=== PATIENT | male | born 1970 | race Caucasian/White ===

== ENCOUNTER 2016-07-02 15:34 | Observation (INO) | payer OTHER ==
[2016-07-02] MEDS ORDERED: SODIUM CHLORIDE 0.9% 500 ML IV STA (16:14)
--- NOTE | 2016-07-02 16:15 | ED ---
General Adult HPI <Spenser Rogers - Last Filed: 07/02/16 18:24> - General Source: patient, RN notes reviewed Mode of arrival: ambulatory Limitations: no limitations <Syeda Lundberg - Last Filed: 07/02/16 23:04> - General Chief complaint: Back Pain/Injury Stated complaint: Back Pain Time Seen by Provider: 07/02/16 15:47 - History of Present Illness Initial comments: This is a 45-year-old male who presents with mid back pain that radiates to the chest. Patient states this started last night but went away. Patient states he was concerned when the pain came back this morning. Patient has noticed some pain that radiates to the left arm. Patient denies that he is having any chest pain right now in the EC. Patient denies any shortness of breath, cough, congestion, or fever/chills. Patient denies any history of heavy lifting and denies that the pain he feels in his back is reproducible. Patient states the pain is not made worse by twisting or bending or lifting. Patient admits that his father and uncle have had myocardial infarctions at younger ages. Patient has no cardiac history but does admit that he takes blood pressure medication. Patient denies any recent fever, chills, shortness breath, abdominal pain, nausea/vomiting/diarrhea, back pain, numbness, tingling, hematuria, headache, or visual changes, or any other complaints. (Syeda Lundberg) - Related Data Home Medications Medication Instructions Recorded Confirmed Citalopram Hydrobromide [CeleXA] 20 mg PO QAM 07/02/16 07/02/16 Losartan/Hydrochlorothiazide 1 tab PO DAILY 07/02/16 07/02/16 [Hyzaar 100-25 Tablet] Allergies Allergy/AdvReac Type Severity Reaction Status Date / Time No Known Allergies Allergy Verified 07/02/16 16:00 Review of Systems ROS Other: All systems not noted in ROS Statement are negative. <Spenser Rogers - Last Filed: 07/02/16 18:24> ROS Other: All systems not noted in ROS Statement are negative. <Syeda Lundberg - Last Filed: 07/02/16 23:04> ROS Statement: Those systems with pertinent positive or pertinent negative responses have been documented in the HPI. Past Medical History Past Medical History: Hypertension History of Any Multi-Drug Resistant Organisms: None Reported Past Surgical History: No Surgical Hx Reported Past Psychological History: No Psychological Hx Reported Smoking Status: Never smoker Past Alcohol Use History: None Reported, Occasional Past Drug Use History: None Reported - Past Family History Mother Family Medical History: Cancer Additional Family Medical History / Comment(s): KIDNEY CANCER, BASAL CELL SKIN CANCER Father Family Medical History: Congestive Heart Failure (CHF) <Syeda Lundberg - Last Filed: 07/02/16 23:04> General Exam <Spenser Rogers - Last Filed: 07/02/16 18:24> Limitations: no limitations <Syeda Lundberg - Last Filed: 07/02/16 23:04> - General Exam Comments Initial Comments: General: The patient is awake and alert, in no distress, and does not appear acutely ill. Neck: The neck is supple, there is no tenderness or JVD. Cardiovascular: There is a regular rate and rhythm. No murmur, rub or gallop is appreciated. Respiratory: Lungs are clear to auscultation, respirations are non-labored, breath sounds are equal. No wheezes, stridor, rales, or rhonchi. Musculoskeletal: Normal ROM, no tenderness. Strength 5/5. Sensation intact. Radial pulses equal bilaterally 2+. Neurological: A&O x 3. CN II-XII intact, There are no obvious motor or sensory deficits. Coordination appears grossly intact. Speech is normal. Skin: Skin is warm and dry and no rashes or lesions are noted. Psychiatric: Cooperative, appropriate mood & affect, normal judgment. (Syeda Lundberg) Procedures <Spenser Rogers - Last Filed: 07/02/16 18:24> <Syeda Lundberg - Last Filed: 07/02/16 23:04> - Procedures Initial comment: An EKG was done at 1619 07/02/2016 showing normal sinus rhythm. Ventricular rate of 71, RI interval of 146, QRS duration of 90, QTC of 480. No acute ST changes. There are no old EKGs in the system for comparison. (Syeda Lundberg) Medical Decision Making - Lab Data Result diagrams: 07/02/16 16:33 07/02/16 16:33 <Spenser Rogers - Last Filed: 07/02/16 18:24> - Lab Data Result diagrams: 07/02/16 16:33 07/02/16 16:33 <Syeda Lundberg - Last Filed: 07/02/16 23:04> - Medical Decision Making The patient be admitted to Dr. beach for observation and serial cardiac enzymes. Dr. Rogers (Spenser Rogers) This is a 45-year-old male who presents with mid-back pain that radiates to the chest. On physical exam his pain is not reproducible. Patient has a history of a father and uncle with early cardiac histories. Lungs are clear to auscultation bilaterally. An EKG was done at 1619 07/02/2016 showing normal sinus rhythm. Ventricular rate of 71, RI interval of 146, QRS duration of 90, QTC of 480. No acute ST changes. There are no old EKGs in the system for comparison. Basic labs along with cardiac labs were drawn interviewed showing: CK-MB is elevated at 3.5 but troponin is negative. A chest x-ray is done and reviewed showing: No acute cardiopulmonary process. Report by Dr. Rubio. Patient will be started on aspirin. Sublingual nitro was held as patient is not having any pain or symptoms at this time and blood pressure is under control. At this time Dr. Lewis was consulted and spoke with Dr. Rogers. Patient will be admitted for observation and serial cardiac enzymes. I discussed this case with attending physician Dr. Rogers who agrees with plan as stated above. (Syeda Lundberg) - Lab Data Lab Results 07/02/16 07/02/16 07/02/16 Range/Units 16:33 16:33 16:33 WBC 11.4 H (3.8-10.6) k/uL RBC 5.45 (4.30-5.90) m/uL Hgb 17.0 (13.0-17.5) gm/dL Hct 49.3 (39.0-53.0) % MCV 90.4 (80.0-100.0) fL MCH 31.2 (25.0-35.0) pg MCHC 34.5 (31.0-37.0) g/dL RDW 12.6 (11.5-15.5) % Plt Count 371 (150-450) k/uL Neutrophils % 67 % Lymphocytes % 22 % Monocytes % 7 % Eosinophils % 2 % Basophils % 0 % Neutrophils # 7.7 (1.3-7.7) k/uL Lymphocytes # 2.5 (1.0-4.8) k/uL Monocytes # 0.7 (0-1.0) k/uL Eosinophils # 0.2 (0-0.7) k/uL Basophils # 0.0 (0-0.2) k/uL PT (9.0-12.0) sec INR (<1.1) APTT (22.0-30.0) sec D-Dimer (<0.60) mg/L FEU Sodium 137 (137-145) mmol/L Potassium 4.2 (3.5-5.1) mmol/L Chloride 96 L (98-107) mmol/L Carbon Dioxide 30 (22-30) mmol/L Anion Gap 11 mmol/L BUN 21 H (9-20) mg/dL Creatinine 1.42 H (0.66-1.25) mg/dL Est GFR (MDRD) Af Amer >60 (>60 ml/min/1.73 sqM) Est GFR (MDRD) Non-Af 54 (>60 ml/min/1.73 sqM) Glucose 102 H (74-99) mg/dL Calcium 10.0 (8.4-10.2) mg/dL Magnesium 2.0 (1.6-2.3) mg/dL Total Bilirubin 1.3 (0.2-1.3) mg/dL AST 51 (17-59) U/L ALT 57 (21-72) U/L Alkaline Phosphatase 76 (38-126) U/L Total Creatine Kinase 886 H (55-170) U/L CK-MB (CK-2) 3.5 H* (0.0-2.4) ng/mL CK-MB (CK-2) Rel Index 0.4 Troponin I <0.012 (0.000-0.034) ng/mL Total Protein 8.1 (6.3-8.2) g/dL Albumin 4.5 (3.5-5.0) g/dL 07/02/16 Range/Units 16:33 WBC (3.8-10.6) k/uL RBC (4.30-5.90) m/uL Hgb (13.0-17.5) gm/dL Hct (39.0-53.0) % MCV (80.0-100.0) fL MCH (25.0-35.0) pg MCHC (31.0-37.0) g/dL RDW (11.5-15.5) % Plt Count (150-450) k/uL Neutrophils % % Lymphocytes % % Monocytes % % Eosinophils % % Basophils % % Neutrophils # (1.3-7.7) k/uL Lymphocytes # (1.0-4.8) k/uL Monocytes # (0-1.0) k/uL Eosinophils # (0-0.7) k/uL Basophils # (0-0.2) k/uL PT 10.4 (9.0-12.0) sec INR 1.0 (<1.1) APTT 26.2 (22.0-30.0) sec D-Dimer 0.19 (<0.60) mg/L FEU Sodium (137-145) mmol/L Potassium (3.5-5.1) mmol/L Chloride (98-107) mmol/L Carbon Dioxide (22-30) mmol/L Anion Gap mmol/L BUN (9-20) mg/dL Creatinine (0.66-1.25) mg/dL Est GFR (MDRD) Af Amer (>60 ml/min/1.73 sqM) Est GFR (MDRD) Non-Af (>60 ml/min/1.73 sqM) Glucose (74-99) mg/dL Calcium (8.4-10.2) mg/dL Magnesium (1.6-2.3) mg/dL Total Bilirubin (0.2-1.3) mg/dL AST (17-59) U/L ALT (21-72) U/L Alkaline Phosphatase (38-126) U/L Total Creatine Kinase (55-170) U/L CK-MB (CK-2) (0.0-2.4) ng/mL CK-MB (CK-2) Rel Index Troponin I (0.000-0.034) ng/mL Total Protein (6.3-8.2) g/dL Albumin (3.5-5.0) g/dL Disposition <Spenser Rogers - Last Filed: 07/02/16 18:24> Decision Time: 18:42 <Syeda Lundberg Last Filed: 07/02/16 23:04> Clinical Impression: Unstable angina Disposition: ADMITTED IP TO THIS HOSP
[2016-07-02 16:42] LABS: Basophils % (A) 0 %; CH 31.8; CHCM 35.3; Eosinophils # (A) 0.2 k/uL (0-0.7); Eosinophils % (A) 2 %; HCT 49.3 % (39.0-53.0); HDW 2.49; Luc # (Auto) 0.27; Luc % (Auto) 2; Lymphocytes # (A) 2.5 k/uL (1.0-4.8); Lymphocytes % (A) 22 %; MCH 31.2 pg (25.0-35.0); MCHC 34.5 g/dL (31.0-37.0); MCV 90.4 fL (80.0-100.0); Mean Platelet Volume 7.1; Monocytes # (A) 0.7 k/uL (0-1.0); Monocytes % (A) 7 %; Neutrophils # (A) 7.7 k/uL (1.3-7.7); Neutrophils % (A) 67 %; RBC 5.45 m/uL (4.30-5.90); RDW 12.6 % (11.5-15.5); WBC 11.4 k/uL (3.8-10.6); WBC (Perox) 11.15
--- NOTE | 2016-07-02 16:42 | XR ---
EXAMINATION TYPE: XR chest 2V DATE OF EXAM: 07/02/2016 4:38 PM COMPARISON: NONE HISTORY: Chest pain TECHNIQUE: Frontal and lateral views of the chest are obtained. FINDINGS: There is no focal air space opacity, pleural effusion, or pneumothorax seen. The cardiac silhouette size is within normal limits. There are prominent lung volumes. The osseous structures ar e intact. IMPRESSION: No acute cardiopulmonary process.
[2016-07-02 16:55] LABS: ALT 57 U/L (21-72); AST 51 U/L (17-59); Alkaline Phosphatase 76 U/L (38-126); Anion Gap 11 mmol/L; Blood Urea Nitrogen 21 mg/dL (9-20); Carbon Dioxide 30 mmol/L (22-30); Chloride 96 mmol/L (98-107); Glucose 102 mg/dL (74-99); Non-African American GFR(MDRD) 54 (>60 ml/min/1.73 sqM); Potassium 4.2 mmol/L (3.5-5.1); Sodium 137 mmol/L (137-145); Total Bilirubin 1.3 mg/dL (0.2-1.3); Total Protein 8.1 g/dL (6.3-8.2)
[2016-07-02 17:01] LABS: Partial Thromboplastin Time 26.2 sec (22.0-30.0); Prothrombin Time 10.4 sec (9.0-12.0)
[2016-07-02 17:28] LABS: Creatine Kinase 886 U/L (55-170)
[2016-07-02 17:41] LABS: Troponin I <0.012 ng/mL (0.000-0.034)
[2016-07-02 17:43] LABS: Creatine Kinase MB 3.5 ng/mL (0.0-2.4)
[2016-07-02] MEDS ORDERED: ASPIRIN 325 MG TAB PO STA (18:00)
[2016-07-02] MEDS: NITROGLYCERIN SL TABS 0.4 MG TAB SUBLINGUAL STA ×2 (18:24→18:31)
[2016-07-02] MEDS ORDERED: MORPHINE SULFATE 4 MG/ML SYRINGE IV PRN (18:31)
[2016-07-02] MEDS ORDERED: NITROGLYCERIN SL TABS 0.4 MG TAB SUBLINGUAL PRN (18:31)
[2016-07-02] MEDS ORDERED: ACETAMINOPHEN TAB 325 MG TAB PO PRN (18:31)
[2016-07-02] MEDS ORDERED: SODIUM CHLORIDE 0.9% 1,000 ML IV SCH (18:45)
[2016-07-02 22:37] LABS: Creatine Kinase 752 U/L (55-170)
[2016-07-02 22:50] LABS: Troponin I <0.012 ng/mL (0.000-0.034)
[2016-07-02 22:53] LABS: Creatine Kinase MB 2.8 ng/mL (0.0-2.4)
[2016-07-03 04:39] LABS: Cholesterol 199 mg/dL (<200); HDL Cholesterol 46 mg/dL (40-60); Triglycerides 161 mg/dL (<150)
[2016-07-03 05:00] LABS: Creatine Kinase 649 U/L (55-170)
[2016-07-03 05:13] LABS: Troponin I <0.012 ng/mL (0.000-0.034)
[2016-07-03 05:36] LABS: Creatine Kinase MB 2.7 ng/mL (0.0-2.4)
[2016-07-03 07:39] VITALS: RESP 18
--- NOTE | 2016-07-03 08:49 | CONS ---
DATE OF CONSULTATION: Kd is a 45-year-old gentleman with history of hypertension who is admitted to hospital with chest pain. Patient states that he is under a lot of stress and with stress he often becomes anxious. He describes it as a discomfort between his shoulder blades in the back without radiation to neck, arm or back, and associated with diaphoresis and without any clear-cut relationship to exertion. The pain had gradually subsided on its own. It was mild to moderate in intensity when it came on. His EKG does not reveal acute ischemic changes and at the time of my evaluation he is comfortable at rest and is free of symptoms. He has had 3 sets of cardiac enzymes that are all within normal limits. His LDL cholesterol is 120. Past medical history is significant for hypertension. Medications include Hyzaar 100/25 q. daily along with Celexa. ALLERGIES: There are no known drug allergies. Family history is significant for premature coronary artery disease. SOCIAL HISTORY: Negative for current smoking, EtOH use or drug abuse. REVIEW OF SYSTEMS: HEENT is unremarkable. CARDIAC: As described above. RESPIRATORY: Negative. GI: Negative. GENITOURINARY: Negative. ALLERGY/IMMUNOLOGY: Negative. SKIN: Negative. MUSCULOSKELETAL: Significant for arthritis. PSYCHOSOCIAL: Negative. ENDOCRINE: Negative. DERMATOLOGY: Negative. CONSTITUTIONAL: Negative. ONCOLOGICAL: Negative. The rest of the system review is not relevant. On exam, comfortable at rest. Vital signs are stable. There is no jugular venous distention. Carotid upstroke is normal. There is no bruit. Chest exam reveals good air entry bilaterally. Heart exam reveals first and second heart sounds. No gallop. No murmur, no rub. Abdomen is soft, nontender. Exam of extremities did not reveal edema. Peripheral pulses are felt. EXTENSION EDUCATOR exam did not reveal focal neurological deficits. EKG does not reveal ischemic changes. Cardiac enzymes have been negative. ASSESSMENT: 1. Precordial chest pain. 2. History of hypertension. PLAN: Patient's chest discomfort is atypical, could be related to the stress; however, given the multiple coronary risk factors, I am going to obtain a stress test on him. If this is negative, he can be discharged home and outpatient followup arranged through my office. If this is abnormal, then I will consider cardiac catheterization on him.
[2016-07-03] MEDS ORDERED: LOSARTAN-HCTZ 50-12.5 MG 1 EACH TAB PO SCH (09:00)
[2016-07-03] MEDS ORDERED: ASPIRIN 325 MG TAB PO SCH (09:00)
--- NOTE | 2016-07-03 10:38 | ECHOF ---
Referral Reason:cp MEASUREMENTS -------- HEIGHT: 175.3 cm WEIGHT: 140.6 kg BP: 150/80 RVIDd: 3.4 cm (< 3.3) IVSd: 1.4 cm (0.6 - 1.1) LVIDd: 4.9 cm (3.9 - 5.3) LVPWd: 1.4 cm (0.6 - 1.1) IVSs: 1.6 cm LVIDs: 3.6 cm LVPWs: 1.8 cm LA Diam: 3.4 cm (2.7 - 3.8) LAESV Index (A-L): 14.70 ml/m Ao Diam: 3.6 cm (2.0 - 3.7) AV Cusp: 2.5 cm (1.5 - 2.6) MV EXCURSION: 15.271 mm (> 18.000) MV EF SLOPE: 43 mm/s (70 - 150) MV E Jovani: 0.64 m/s MV DecT: 308 ms MV A Jovani: 0.64 m/s MV E/A Ratio: 0.99 FINDINGS -------- Sinus rhythm. This was a technically good study. The left ventricular size is normal. There is moderate concentric left ventricular hypertrophy. Overall left ventricular systolic function is normal with, an EF between 55 - 60 %. The right ventricle is mildly enlarged. Normal LA size by volume 22+/-6 ml/m2. The right atrium is normal in size. The aortic valve is trileaflet and appears structurally normal. The mitral valve is normal. No mitral regurgitation. The tricuspid valve appears structurally normal. There is no pulmonic regurgitation present. The aortic root size is normal. Normal inferior vena cava with normal inspiratory collapse consistent with estimated right atrial pressure of 5 mmHg. There is no pericardial effusion. CONCLUSIONS -------- 1. Sinus rhythm. 2. The aortic root size is normal. 3. Normal inferior vena cava with normal inspiratory collapse consistent with estimated right atrial pressure of 5 mmHg. 4. There is no pericardial effusion. 5. This was a technically good study. 6. There is moderate concentric left ventricular hypertrophy. 7. The right ventricle is mildly enlarged. 8. Normal LA size by volume 22+/-6 ml/m2. 9. The aortic valve is trileaflet and appears structurally normal. 10. The mitral valve is normal. 11. The tricuspid valve appears structurally normal. 12. There is no pulmonic regurgitation present. FOOD CHECKER: Katherine Mckeon RDCS
--- NOTE | 2016-07-03 11:27 | EST ---
DATE OF SERVICE: 07/03/2016 AGE: 45Y SEX: M HT: 69" WT: 310 lbs. Protocol David: X Other: Cardiolite Stress Stage: 3 Dur. of Exercise: 8:00 *Heart Rate Blood Pressure *Rest: 98 Rest: 154/87 * *Max. Achieved: 156 Maximum BP: 159/96 85% PMHR: 149 100% PMHR: 175 *METS: 8.1 INDICATIONS: Chest pain. MEDICATIONS: Hyzaar, Celexa. Baseline rhythm is sinus mechanism, rate of 98, normal axis and intervals. Normal electrocardiogram. Baseline blood pressure 154/87 mmHg. Patient exercised David protocol for 8 minutes reaching peak rate of 156 beats per minute which is equal to 89% maximum predicted heart rate; peak blood pressure 159/96 mmHg. Test was terminated due to fatigue. There was no chest pain. Electrocardiographic monitoring revealed no evidence of diagnostic ischemic ST deviation. Cardiolite was injected at peak exercise. CONCLUSION: 1. Average exercise tolerance with normal electrocardiograph response to exercise. 2. Nuclear images will be reported separately.
[2016-07-03 11:45] VITALS: BP 141/80; PULSE 98; TEMP 98.2
--- NOTE | 2016-07-03 12:03 | NM ---
EXAMINATION TYPE: NM stress cardiolite complete DATE OF EXAM: 07/03/2016 11:38 AM COMPARISON: NONE HISTORY: Precordial chest pain and abnormal EKG TECHNIQUE: After the intravenous administration of 10.54 mCi Tc 99m Sestamibi - Rest images obtained 75 minutes post injection. The patient exercised using a VERNON protocol and 1 minute prior to peak exercise was injected with 27.1 mCi Tc 99m Sestamibi - Stress images obtained 15 minutes post inject ion. FINDINGS: Targeted heart rate was achieved during performance of the study. Review of stress and rest SPECT akin ges demonstrates decreased perfusion inferior wall which improves upon stress imaging. This may refle ct attenuation artifact versus a combination of attenuation artifact and remote insult. Correlate cli nically. No evidence for stress-induced ischemia. Estimated ejection fraction is 64%. IMPRESSION: No scintigraphic evidence for reversible ischemia. decreased perfusion inferior wall which improves upon stress imaging. This may reflect attenuation artifact versus a combination of attenuation artifa ct and remote insult. Correlate clinically.
--- NOTE | 2016-07-03 17:12 | P.HPIM ---
History of Present Illness H&P Date: 07/03/16 (DC summary as well) 45-year-old gentleman comes in the hospital with complains of acute chest pain started the day of that his admission. Patient states that the pain initially started in his back radiated underneath his left breast. Stated that the episode was short lasting pressure-like in nature no alleviating or exacerbating factors are reported. Did not associate the pain with deep breathing coughing or any belching. Patient denies having similar pains to severe exertion in the past. In the emergency room patient was evaluated at that time patient was symptom free. EKG did not reveal ST-T wave changes was in normal sinus rhythm. Patient apparently is very active and walks about 5 km intermittently and does not have any episodes of chest pain. Patient does have a history of foot depression has recently started taking his Celexa again. States that he does have excessive worrying. Patient has having any headaches, blurry vision, nausea, vomiting, cough, chest pain, abdominal pain, urinary urgency or frequency Review of Systems All systems: negative (Noted in HPI) Past Medical History Past Medical History: Hypertension Additional Past Medical History / Comment(s): GOUT, ABD HERNIA, IBS, SLEEP APNEA /CPAP History of Any Multi-Drug Resistant Organisms: None Reported Past Surgical History: No Surgical Hx Reported Additional Past Surgical History / Comment(s): LT FOOT SX D/R CLUB FOOT, NASAL POLYPS REMOVED(BENIGN), RT HAND MIDDLE FINGER SX Past Anesthesia/Blood Transfusion Reactions: No Reported Reaction Past Psychological History: No Psychological Hx Reported Smoking Status: Never smoker Past Alcohol Use History: None Reported, Occasional Past Drug Use History: None Reported - Past Family History Mother Family Medical History: Cancer Additional Family Medical History / Comment(s): KIDNEY CANCER, BASAL CELL SKIN CANCER Father Family Medical History: Congestive Heart Failure (CHF) Medications and Allergies Home Medications Medication Instructions Recorded Confirmed Type Citalopram Hydrobromide [CeleXA] 20 mg PO QAM 07/02/16 07/02/16 History Losartan/Hydrochlorothiazide 1 tab PO DAILY 07/02/16 07/02/16 History [Hyzaar 100-25 Tablet] Allergies Allergy/AdvReac Type Severity Reaction Status Date / Time No Known Allergies Allergy Verified 07/02/16 16:00 Physical Exam Vitals: Vital Signs Temp Pulse Pulse Resp BP BP Pulse Ox 07/03/16 11:45 98.2 F 98 18 141/80 93 L 07/03/16 07:39 98.0 F 69 18 150/80 96 07/03/16 04:00 97.6 F 63 18 145/84 98 07/03/16 00:00 97.6 F 18 94/54 94 L 07/02/16 20:00 98.1 F 75 16 111/81 94 L 07/02/16 19:00 98.3 F 76 18 118/68 98 Intake and Output 07/03/16 07/03/16 07/03/16 06:59 14:59 22:59 Other: Voiding Method Toilet Physical exam Gen. appearance oriented 3 in no distress Neck is supple no JVD Lungs good air entry clear to auscultation no rhonchi or wheezing Heart S1-S2 heard regular rate and rhythm no murmurs appreciated Abdomen is soft nontender no organomegaly bowel sounds are intact Neurologically cranial nerves II-12 grossly intact no focal motor or sensory deficits noted Skin no abnormalities appreciated Results CBC & Chem 7: 07/02/16 16:33 07/02/16 16:33 Labs: Abnormal Lab Results - Last 24 Hours (Table) 07/02/16 07/03/16 07/03/16 Range/Units 22:00 04:01 04:01 Total Creatine Kinase 752 H 649 H (55-170) U/L CK-MB (CK-2) 2.8 H* 2.7 H* (0.0-2.4) ng/mL Triglycerides 161 H (<150) mg/dL LDL Cholesterol, Calc 121 H (0-99) mg/dL Thrombosis Risk Factor Assmnt - Choose All That Apply Any of the Below Risk Factors Present?: Yes Each Factor Represents 1 point: Age 41-60 years, Hx of IBD, Obesity (BMI >25) Other Risk Factors: No Other congenital or acquired thrombophilia - If yes, enter type in comment: No Thrombosis Risk Factor Assessment Total Risk Factor Score: 3 Thrombosis Risk Factor Assessment Level: Moderate Risk Assessment and Plan Plan: Atypical chest pain ACS is ruled out stress test is negative #2 obesity #3 obstructive sleep apnea currently on CPAP #4 CK D stage III with creatinine around 1.4 or patient is a larger gentlemen, could be around his baseline #5 history of essential hypertension #6 anxiety Plan Patient is discharged home. We do not have a prior creatinine hence we'll defer this to the patient's primary care physician for management. We'll continue current medications at this time. Patient is recommended start taking a baby aspirin. Patient may benefit from having a repeat titration study of his sleep apnea
== END 2016-07-03 14:56 | disposition home or self-care (01) ==
LOC: EC 15:34 → 3OBS 18:48
PROVIDERS: ADMIT Internal Medicine; ATTEND Internal Medicine
DX: R07.2 Precordial pain (principal); F32.9 Major depressive disorder, single episode, unspecified; M10.9 Gout, unspecified; K58.9 Irritable bowel syndrome, unspecified; G47.33 Obstructive sleep apnea (adult) (pediatric); I12.9 Hypertensive chronic kidney disease with stage 1 through stage 4 chronic kidney disease, or unspecified chronic kidney disease; N18.3 Chronic kidney disease, stage 3 (moderate); Z80.51 Family history of malignant neoplasm of kidney; Z82.49 Family history of ischemic heart disease and other diseases of the circulatory system; Z79.899 Other long term (current) drug therapy
CPT/HCPCS: 96360 ×2; 99284 ×2; 36415; 93005; 93017; 93306; 85379; 80061; 80053; 82550 ×2; 82553 ×2; 83735; 84484 ×2; 85025; 85610; 85730; 71020; 78452; G0378 ×2; A9500

== ENCOUNTER → 2020-12-13 | Outpatient (CLI) | payer OTHER ==
[2020-12-13 14:47] VITALS: BP 121/77; PULSE 69; TEMP 98.4; BMI 52.0
--- NOTE | 2020-12-13 16:40 | P.HPBAR ---
Bariatric H&P - History & Physicial H&P Date: 12/13/20 History & Physicial: Visit/CC: initial clinic visit Patient initial contact: Initial weight: Initial weight in pounds: Height: 5 ft 10 in Initial BMI: Last weight: Current weight: 164.654 kg Current weight in pounds: 363.00 Current BMI: 52.0 [place] body weight (based on NIH guidelines): 75.296 kg Excess body weight loss: The patient is a 50 year-old M who presents for Bariatric Assessment. Patient presents to the bariatric clinic for new bariatric assessment. Patient is considering sleeve gastrectomy. States he has suffered with his weight for many years. He was able to lose 80 pounds with a keto diet several years ago but quickly re-gained the weight. Patient suffers from hypertension, asthma, sleep apnea, anxiety. No history of tobacco use or EtOH. No dysphagia or DVT in the past. No prior upper endoscopy. Also complains of hernia in the supraumbilical location. No real discomfort there. No nausea or vomiting. Hernia has gotten larger over time. Patient denies any history of abdominal surgery in the past. Review of Systems The patient denies any acute changes in vision or hearing, no dysphagia or odynophagia, no chest pain or shortness of breath, no dysuria or hematuria, no headache, no runny nose, no rectal bleeding or melena, no unexplained weight loss Past Medical History Past Medical History: Hypertension Additional Past Medical History / Comment(s): GOUT, ABD HERNIA, IBS, SLEEP APNEA/CPAP History of Any Multi-Drug Resistant Organisms: None Reported Past Surgical History: No Surgical Hx Reported, Orthopedic Surgery Additional Past Surgical History / Comment(s): LT FOOT SX D/R CLUB FOOT, NASAL POLYPS REMOVED(BENIGN), RT HAND MIDDLE FINGER SX Past Anesthesia/Blood Transfusion Reactions: No Reported Reaction Past Psychological History: Anxiety Smoking Status: Never smoker Past Alcohol Use History: None Reported, Occasional Past Drug Use History: None Reported - Past Family History Mother Family Medical History: Cancer Additional Family Medical History / Comment(s): KIDNEY CANCER, BASAL CELL SKIN CANCER Father Family Medical History: Congestive Heart Failure (CHF) Surgical - Exam Vital Signs Temp Pulse BP 98.4 F 69 121/77 12/13/20 14:44 12/13/20 14:44 09/09/21 14:44 Physical exam: General: Well-developed, well-nourished HEENT: Normocephalic, sclerae nonicteric Abdomen: Nontender, nondistended, moderate sized hernia present in the supra umbilical location unclear whether this represents an umbilical hernia with superior extension or a ventral hernia. This is partially reducible although patient states she is able to reduce it fully. Extremities: No edema Neuro: Alert and oriented Bariatric Assessment & Plan (1) Morbid obesity with BMI of 50.0-59.9, adult Narrative/Plan: 50-year-old male with morbid obesity and associated comorbidities. Patient interested in sleeve gastrectomy. Risks and benefits of the procedure along with the alternative surgeries reviewed in detail. Anticipated weight loss also discussed in detail. Patient considering holding off on weight loss surgery and fixing the hernia first. We discussed that he would likely derived greater benefit from surgical weight loss first. Patient will continue to consider these options. He will notify me of his decision. Will require preoperative EGD. Status: Acute Bariatric Checklist Checklist: Plan: Checklist: EGD: 1. Hiatal hernia: 2. H. Pylori: HgbA1c: Vitamin D: Smoking: Never smoker Primary care physician referral: dr castillo out [facility] Psychiatry clearance: Cardiology clearance: Sleep study: Diet journal: VTE risk score: VTE risk level: Rehab needs at discharge:
== END ==
LOC: BARWHC3 02:30
PROVIDERS: ATTEND Surgery
DX: E66.01 Morbid (severe) obesity due to excess calories (principal); Z68.43 Body mass index [BMI] 50.0-59.9, adult; I10 Essential (primary) hypertension; F41.9 Anxiety disorder, unspecified
CPT/HCPCS: 99211

== ENCOUNTER → 2021-07-30 | Outpatient (CLI) | payer OTHER ==
[2021-07-30 16:06] VITALS: BP 132/80; PULSE 94; RESP 16; TEMP 98.2; BMI 55.3
--- NOTE | 2021-07-30 17:45 | P.BASOAP ---
Subjective Progress Note Date: 07/30/21 Principal diagnosis: Morbid obesity 50-year-old male returns to discuss weight loss surgery. Patient was last seen in December of last year. Since that time he has gained 23 pounds. Patient says the supraumbilical ventral hernia is larger than was previously. Mild pain at times. BMI went from 52-55. Objective - Vital Signs Vital signs: Vital Signs Temp 98.2 F 07/30/21 15:57 Pulse 94 07/30/21 15:57 Resp 16 07/30/21 15:57 BP 132/80 07/30/21 15:57 Pulse Ox Intake & Output 07/29/21 07/30/21 07/30/21 18:59 06:59 18:59 Weight 175.087 kg - Exam Abdomen: Soft, nondistended, partially reducible ventral hernia 8 cm superior to umbilicus Assessment/Plan (1) Morbid obesity with BMI of 50.0-59.9, adult Narrative/Plan: 50-year-old male with morbid obesity and associated coronary disease. Patient also with symptomatic ventral hernia. Discussed options with patient. Given the location I think it actually is better in this particular case to proceed with open repair ventral hernia with mesh prior to bariatric surgery. Patient is still undecided about either surgery at this time in either event. Discussed with patient that we could perform his EGD at the time of his hernia repair if he would like us to. He will consider them contact me with his decision. Plan: Date: 07/30/21 Initial Weight: 175.087 kg Initial BMI: 55.3 Current Weight: 175.087 kg Current BMI: 55.3 Type of Surgery: Total Volume in Band: Previous Volume: Volume Removed: Volume Added: Band Size:
== END ==
LOC: BARWHC3 15:34
PROVIDERS: ATTEND Surgery
DX: E66.01 Morbid (severe) obesity due to excess calories (principal); Z68.43 Body mass index [BMI] 50.0-59.9, adult; I25.10 Atherosclerotic heart disease of native coronary artery without angina pectoris
CPT/HCPCS: 99211

== ENCOUNTER 2021-09-27 09:01 | Day surgery (SDC) | payer OTHER ==
[2021-09-24 14:52] VITALS: BMI 54.5
--- NOTE | 2021-09-27 07:56 | P.GSHP ---
History of Present Illness H&P Date: 09/27/21 Chief Complaint: Ventral hernia 50-year-old male being followed at the bariatric center. Patient has an enlarging supraumbilical ventral hernia. Mild pain at times. Patient has comorbidities including hypertension and asthma sleep apnea and anxiety. No previous abdominal surgeries. Patient is due for upper endoscopy as part of his bariatric workup as well. Mild GERD symptoms. Past Medical History Past Medical History: Hypertension, Sleep Apnea/CPAP/BIPAP Additional Past Medical History / Comment(s): hx GOUT, ABD HERNIA, CPAP used. hx IBS, History of Any Multi-Drug Resistant Organisms: None Reported Past Surgical History: Orthopedic Surgery Additional Past Surgical History / Comment(s): LT FOOT SX FOR CLUB FOOT, NASAL POLYPS REMOVED(BENIGN), RT HAND MIDDLE FINGER SX/pins Past Anesthesia/Blood Transfusion Reactions: Motion Sickness Smoking Status: Never smoker - Past Family History Mother Family Medical History: Cancer Additional Family Medical History / Comment(s): KIDNEY CANCER, BASAL CELL SKIN CANCER Father Family Medical History: Congestive Heart Failure (CHF) Medications and Allergies Home Medications Medication Instructions Recorded Confirmed Type Losartan Potassium [Cozaar] 100 mg PO DAILY 09/25/21 09/25/21 History Allergies Allergy/AdvReac Type Severity Reaction Status Date / Time No Known Allergies Allergy Verified 09/24/21 14:44 Surgical - Exam Physical exam: General: Well-developed, well-nourished HEENT: Normocephalic, sclerae nonicteric Abdomen: Nontender, nondistended, partially reducible ventral hernia 8 cm superior to the umbilicus Extremities: No edema Neuro: Alert and oriented Assessment and Plan (1) Ventral hernia Narrative/Plan: 50-year-old male with symptomatic enlarging ventral hernia. Will proceed with open ventral hernia repair with mesh and EGD at this time. Risks of bleeding, infection, recurrence, bladder and bowel injury, numbness, nerve injury were discussed with the patient. The patient understands and wishes to proceed. Status: Acute Code(s): K43.9 - VENTRAL HERNIA WITHOUT OBSTRUCTION OR GANGRENE SNOMED Code(s): 517979147
[~2021-09-27 09:01] MED LIST: ACETAMINOPHEN TAB 500 MG TAB PO PRN; DEXAMETHASONE SOD PHOSPHATE 4 MG/ML 1 ML VIAL IV ONE; HEPARIN SODIUM,PORCINE/PF 5,000 UNIT/0.5 ML SYRINGE SQ PRN; HYDROmorphone 0.5 MG/0.5 ML SYRINGE IVP PRN; LACTATED RINGERS 1,000 ML IV SCH; MIDAZOLAM 2 MG/2 ML VIAL IV PRN; ONDANSETRON 4 MG/2 ML VIAL IVP ONE; SCOPOLAMINE 1 MG/72 HR PATCH TRANSDERM ONE; ceFAZolin 3 GM in SODIUM CHLORIDE 0.9% 100 ML IVPB PRN
[2021-09-27 09:33] LABS: Glucose,Whole Blood 106 mg/dL (70-110)
[2021-09-27] MEDS ORDERED: PROPOFOL 10 MG/ML 20 ML VIAL IV ONE (10:44)
[2021-09-27] MEDS ORDERED: ePHEDrine 50 MG/ML 1 ML VIAL ONE (10:44)
[2021-09-27] MEDS ORDERED: LIDOCAINE 2% INJ 20 MG/ML (2 ML VIAL) ONE (10:44)
[2021-09-27] MEDS ORDERED: NEOSTIGMINE 1 MG/ML 10 ML VIAL ONE (10:44)
[2021-09-27] MEDS ORDERED: PHENYLEPHRINE-0.9% NACL SYG 1,000 MCG/10 ML SYRINGE ONE (10:44)
[2021-09-27] MEDS ORDERED: ROCURONIUM 10 MG/ML (5 ML VIAL) IV ONE (10:44)
[2021-09-27] MEDS ORDERED: KETOROLAC 15 MG/ML 1 ML VIAL ONE (10:44)
[2021-09-27] MEDS ORDERED: fentaNYL (PF) 50 MCG/ML 2 ML AMP ONE (10:44)
[2021-09-27] MEDS ORDERED: MIDAZOLAM 2 MG/2 ML VIAL ONE (10:44)
[2021-09-27] MEDS ORDERED: GLYCOPYRROLATE 0.2 MG/ML 2 ML VIAL ONE (10:44)
[2021-09-27] MEDS ORDERED: SUCCINYLCHOLINE CHLORIDE VIAL 200 MG/10 ML VIAL IV ONE (10:44)
[2021-09-27] MEDS ORDERED: LACTATED RINGERS 1,000 ML IV ONE (12:45)
--- NOTE | 2021-09-27 13:02 | P.OP ---
Date of Procedure: 09/27/21 Procedure(s) Performed: PREOPERATIVE DIAGNOSIS: Incarcerated ventral hernia POSTOPERATIVE DIAGNOSIS: Incarcerated ventral and umbilical hernia PROCEDURE: Open repair incarcerated ventral hernia with mesh, umbilical hernia repair, partial omentectomy SURGEON: Dr. Randhawa ANESTHESIA: General OPERATIVE PROCEDURE DETAILS: Patient placed on the operating table in the supine position. Abdomen was prepped and draped in usual sterile fashion. A vertical incision was then made superior to the umbilicus by approximately 3 cm. Dissection through the subcutaneous tissues took place using electrocautery. The patient had a large hernia sac present. This contained a large portion of omentum. Omentum was adhesed to the hernia sac. This was able to be lysed. The majority of the hernia sac was excised. The omentum was also partially excised using the LigaSure device. The hernia sac was then closed using a running locking 2-0 Vicryl suture. The preperitoneal space was then dissected circumferentially. In doing so I identified a 1.5 cm defect at the base of the umbilicus. This was only 1.5-2 cm away from the inferior aspect of the ventral hernia opening. This was all included into one defect than at this time. Size of the defect was 4 x 5 cm. The 8 x [address] mesh was used and placed beneath the fascial defect. This was in the preperitoneal space. This was sutured to the fascia using trans-fascial interrupted 0 Ethibond sutures. The fascia was then reapproximated horizontally using a overlapping technique with interrupted 0 Ethibond horizontal mattress sutures. The folding edge was sutured down using interrupted 0 Ethibond sutures as well. A drain was placed anterior to the fascial closure and exited through the left lower abdominal wall. This was sutured in place using a 0 Ethibond suture. The subcutaneous tissues were closed using both 20 and 3-0 Vicryl sutures. The umbilicus was sutured down using a 2-0 Vicryl stitch. The skin was closed using a running 4-0 Monocryl suture. Skin glue and sterile dressings were applied. HERNIA CHARACTERISTICS: Length: 4 cm Width: 5 cm Type: Ventral and umbilical TYPE OF MESH USED: 8 x 12 cm Ventrio LOCATION OF MESH: Sub-lay FIXATION: Trans-fascial 0 Ethibond sutures PREOPERATIVE DISCUSSION ON SMOKING CESSASTION: Yes PREOPERATIVE DISCUSSION ON MORBID OBESITY: Yes PREOPERATIVE DISCUSSION ON APPROPRIATE USE OF NARCOTIC USE: Yes PREOPERATIVE EDUCATION: Multi Modal, Smoking Cessation and Weight Loss with BMI over 35. DISPOSITION: Stable to recovery room
[2021-09-27 13:24] VITALS: TEMP 97.8
[2021-09-27] MEDS ORDERED: ONDANSETRON 4 MG/2 ML VIAL IVP ONE (13:47)
[2021-09-27 14:32] VITALS: RESP 18
[2021-09-27 14:52] VITALS: BP 118/71; PULSE 75
[2021-09-27] MEDS ORDERED: ACETAMINOPHEN TAB 325 MG TAB PO SCH (15:00)
[2021-09-27] MEDS ORDERED: IBUPROFEN 600 MG TAB PO SCH (16:00)
[2021-09-27] MEDS ORDERED: traMADol 50 MG TAB PO SCH (18:00)
== END 2021-09-27 16:15 | disposition home or self-care (01) ==
LOC: OR 09:01
PROVIDERS: ATTEND Surgery
DX: K43.6 Other and unspecified ventral hernia with obstruction, without gangrene (principal); K42.0 Umbilical hernia with obstruction, without gangrene; K29.50 Unspecified chronic gastritis without bleeding; K21.9 Gastro-esophageal reflux disease without esophagitis; E66.01 Morbid (severe) obesity due to excess calories; Z68.43 Body mass index [BMI] 50.0-59.9, adult; I10 Essential (primary) hypertension; J45.909 Unspecified asthma, uncomplicated; G47.33 Obstructive sleep apnea (adult) (pediatric); F41.9 Anxiety disorder, unspecified; M10.9 Gout, unspecified; K58.9 Irritable bowel syndrome, unspecified; Z80.51 Family history of malignant neoplasm of kidney; Z82.49 Family history of ischemic heart disease and other diseases of the circulatory system; Z79.899 Other long term (current) drug therapy
CPT/HCPCS: 49561; 49568; 49587; 88305; 88302; 43239; C1781; J2250; J0330; J1100; J2710; J0690; J2405; J3010; J1885; J2370; J2704; J1170; J1644; J2001

== ENCOUNTER → 2021-12-31 | Outpatient (CLI) | payer OTHER ==
[2021-12-31 15:58] VITALS: BP 131/86; PULSE 76; RESP 16; TEMP 98.6; BMI 54.5
--- NOTE | 2021-12-31 16:38 | P.BASOAP ---
Subjective Progress Note Date: 12/31/21 Principal diagnosis: Morbid obesity 51-year-old male known to our service. Patient with history of morbid obesity. He underwent repair of a ventral hernia in September of this year. Patient remains interested in sleeve gastrectomy. He already had his upper endoscopy performed as well at the time of his hernia repair. No other changes to his recent history and physical. Objective - Vital Signs Vital signs: Vital Signs Temp 98.6 F 12/31/21 15:55 Pulse 76 12/31/21 15:55 Resp 16 12/31/21 15:55 BP 131/86 12/31/21 15:55 Pulse Ox FiO2 Intake & Output 12/30/21 12/31/21 12/31/21 18:59 06:59 18:59 Weight 172.365 kg - Exam Abdomen: Soft, nontender, nondistended, incision clean and dry Assessment/Plan (1) Morbid obesity with BMI of 50.0-59.9, adult Narrative/Plan: 51-year-old male with morbid obesity and associated coronary disease. Patient would like to proceed with sleeve gastrectomy. Await psych eval and dietary class. Will tentatively scheduled for upcoming laparoscopic da Rick-assisted sleeve gastrectomy. Slight increased risks related to the recent hernia repair reviewed. Risks of bleeding, infection, recurrence, bladder and bowel injury, numbness, nerve injury, conversion to an open procedure were discussed with the patient. The patient understands and wishes to proceed. Surgical consent form reviewed in detail. Plan: Date: 12/31/21 Initial Weight: 175.087 kg Initial BMI: 55.3 Current Weight: 172.365 kg Current BMI: 54.5 Type of Surgery: Total Volume in Band: Previous Volume: Volume Removed: Volume Added: Band Size:
== END ==
LOC: BARWHC3 15:31
PROVIDERS: ATTEND Surgery
DX: E66.01 Morbid (severe) obesity due to excess calories (principal); Z98.84 Bariatric surgery status; Z68.43 Body mass index [BMI] 50.0-59.9, adult; I25.10 Atherosclerotic heart disease of native coronary artery without angina pectoris
CPT/HCPCS: 99211

== ENCOUNTER → 2022-01-13 | Outpatient (CLI) | payer OTHER ==
[2022-01-13 10:30] VITALS: BMI 54.3
[2022-01-13 15:59] LABS: HGB 14.8 g/dL (13.0-17.0); MCH 31.4 pg (27.0-32.0); MCHC 34.4 g/dL (32.0-37.0); MCV 91.1 fL (80.0-97.0); Mean Platelet Volume 11.6 fL (9.5-12.2); NRBC Per 100 WBC 0 /100 WBCS (0.0-0.0); Platelet Count 380 X 10*3/uL (140-440); RBC 4.72 X 10*6/uL (4.40-5.60); RDW 12.7 % (11.5-14.5); WBC 8.85 X 10*3/uL (4.50-10.00)
[2022-01-13 16:32] LABS: % Iron Saturation 38.38 (15.00-50.00); African American GFR (CKD) 73.2 (60.0-200.0); Albumin 4.3 g/dL (3.8-4.9); Albumin/Globulin Ratio 1.48 (1.60-3.17); Anion Gap 10.6 mmol/L (10.00-18.00); Blood Urea Nitrogen 16.9 mg/dL (9.0-27.0); Calcium 9.5 mg/dL (8.7-10.3); Carbon Dioxide 25.4 mmol/L (20.0-27.5); Globulin 2.9 g/dL (1.6-3.3); Non-African American GFR(CKD) 63.2 (60.0-200.0); Total Bilirubin 0.6 mg/dL (0.30-1.20); Total Protein 7.2 g/dL (6.2-8.2)
== END ==
LOC: BARWHC3 08:37
PROVIDERS: ATTEND Surgery
DX: K90.89 Other intestinal malabsorption (principal); D50.8 Other iron deficiency anemias; E55.9 Vitamin D deficiency, unspecified; E66.01 Morbid (severe) obesity due to excess calories; Z68.43 Body mass index [BMI] 50.0-59.9, adult
CPT/HCPCS: 84425; 80053; 82607; 82728; 82746; 83540; 83550; 84443; 85027; 82306; 80323; 80307; 97804; 93005; G0482

== ENCOUNTER → 2022-04-01 | Outpatient (CLI) | payer OTHER ==
[2022-04-01 10:39] VITALS: BMI 54.3
== END ==
LOC: BARWHC3 09:53
PROVIDERS: ATTEND Surgery
DX: Z71.3 Dietary counseling and surveillance (principal); E66.01 Morbid (severe) obesity due to excess calories; Z68.43 Body mass index [BMI] 50.0-59.9, adult
CPT/HCPCS: 97802

== ENCOUNTER → 2022-04-29 | Outpatient (CLI) | payer OTHER ==
[2022-04-29 13:00] VITALS: BMI 54.5
== END ==
LOC: BARWHC3 10:57
PROVIDERS: ATTEND Surgery
DX: E66.01 Morbid (severe) obesity due to excess calories (principal); Z71.3 Dietary counseling and surveillance
CPT/HCPCS: 97803

== ENCOUNTER → 2022-07-09 | Outpatient (CLI) | payer OTHER ==
[2022-07-09 08:41] LABS: Basophils % (A) 0 %; Eosinophils # (A) 0.4 k/uL (0-0.7); Eosinophils % (A) 5 %; HCT 45.9 % (39.0-53.0); HGB 15.9 gm/dL (13.0-17.5); Lymphocytes # (A) 1.7 k/uL (1.0-4.8); Lymphocytes % (A) 23 %; MCH 31.2 pg (25.0-35.0); MCHC 34.6 g/dL (31.0-37.0); MCV 90.3 fL (80.0-100.0); Mean Platelet Volume 8.2; Monocytes # (A) 0.4 k/uL (0-1.0); Monocytes % (A) 6 %; Neutrophils # (A) 4.9 k/uL (1.3-7.7); Neutrophils % (A) 64 %; Platelet Count 387 k/uL (150-450); RBC 5.09 m/uL (4.30-5.90); RDW 12.8 % (11.5-15.5); WBC 7.7 k/uL (3.8-10.6)
[2022-07-09 09:55] LABS: ALT 111 U/L (4-49); AST 78 U/L (17-59); African American GFR (CKD) 85 (>60 ml/min/1.73 sqM); Albumin 4.1 g/dL (3.5-5.0); Albumin/Globulin Ratio 1.2; Alkaline Phosphatase 84 U/L (38-126); Anion Gap 10 mmol/L; Blood Urea Nitrogen 22 mg/dL (9-20); Calcium 9.5 mg/dL (8.4-10.2); Carbon Dioxide 25 mmol/L (22-30); Chloride 103 mmol/L (98-107); Globulin 3.4 g/dL; Glucose 108 mg/dL (74-99); Non-African American GFR(CKD) 74 (>60 ml/min/1.73 sqM); Potassium 4.7 mmol/L (3.5-5.1); Sodium 138 mmol/L (137-145); Total Bilirubin 0.9 mg/dL (0.2-1.3); Total Protein 7.5 g/dL (6.3-8.2)
== END | disposition home or self-care (01) ==
LOC: LABPAT 07:44
PROVIDERS: ATTEND Surgery
DX: Z01.812 Encounter for preprocedural laboratory examination (principal)
CPT/HCPCS: 80053; 85025

== ENCOUNTER 2022-07-21 09:00 | Inpatient (IN) | payer OTHER ==
[~2022-07-21 09:00] MED LIST changes: -DEXAMETHASONE SOD PHOSPHATE 4 MG/ML 1 ML VIAL IV ONE; +ENOXAPARIN 40 MG/0.4 ML SYRINGE SQ PRN; -HEPARIN SODIUM,PORCINE/PF 5,000 UNIT/0.5 ML SYRINGE SQ PRN; -LACTATED RINGERS 1,000 ML IV SCH; -ONDANSETRON 4 MG/2 ML VIAL IVP ONE; +ONDANSETRON 4 MG/2 ML VIAL IVP PRN; -SCOPOLAMINE 1 MG/72 HR PATCH TRANSDERM ONE
--- NOTE | 2022-07-21 09:23 | P.GSHP ---
History of Present Illness H&P Date: 07/21/22 Chief Complaint: Morbid obesity 51-year-old male here today for elective laparoscopic da Rick-assisted sleeve gastrectomy. Patient was initially seen in the bariatric center in December 2020. Patient had a large symptomatic upper abdominal wall hernia that required repair prior to bariatric surgery. This was performed in open fashion September of last year. A 8 x 12 cm Ventrio mesh was placed at the time. We did not enter the peritoneal cavity. Patient remains interested in sleeve gastrectomy. Current BMI 57. Previously was 52. Previous EGD showed mild gastritis. Patient suffers from hypertension and asthma sleep apnea and anxiety. No history of tobacco use. Past Medical History Past Medical History: Hypertension, Sleep Apnea/CPAP/BIPAP Additional Past Medical History / Comment(s): hx GOUT, , CPAP used. hx IBS, History of Any Multi-Drug Resistant Organisms: None Reported Past Surgical History: Hernia Repair, Orthopedic Surgery Additional Past Surgical History / Comment(s): LT FOOT SX FOR CLUB FOOT, NASAL POLYPS REMOVED(BENIGN), RT HAND MIDDLE FINGER SX/pins. umbilical hernia repair Past Anesthesia/Blood Transfusion Reactions: Motion Sickness Additional Past Anesthesia/Blood Transfusion Reaction / Comment(s): no blood transfusions Smoking Status: Never smoker - Past Family History Mother Family Medical History: Cancer Additional Family Medical History / Comment(s): KIDNEY CANCER, BASAL CELL SKIN CANCER Father Family Medical History: Congestive Heart Failure (CHF) Medications and Allergies Home Medications Medication Instructions Recorded Confirmed Type Losartan Potassium [Cozaar] 100 mg PO DAILY 09/25/21 07/15/22 History Escitalopram Oxalate [Lexapro] 10 mg PO DAILY 01/01/22 07/15/22 History Allergies Allergy/AdvReac Type Severity Reaction Status Date / Time No Known Allergies Allergy Verified 07/15/22 12:34 Surgical - Exam Physical exam: General: Well-developed, well-nourished HEENT: Normocephalic, sclerae nonicteric Abdomen: Nontender, nondistended, upper midline scar Extremities: No edema Neuro: Alert and oriented Assessment and Plan (1) Morbid obesity with BMI of 50.0-59.9, adult Narrative/Plan: 51-year-old male with morbid obesity and associated comorbidities. We'll proceed with laparoscopic da Rick-assisted sleeve gastrectomy, possible open at this time. The risks of bleeding, infection, stenosis, stricture, leak, a bscess, fistula formation, peritonitis, poor weight loss, reflux, vomiting, conversion to an open procedure, aborting sleeve gastrectomy, ME, PE, DVT, and were discussed. The patient understands and wishes to proceed. Status: Acute Code(s): E66.01 - MORBID (SEVERE) OBESITY DUE TO EXCESS CALORIES; Z68.43 - BODY MASS INDEX [BMI] 50.0-59.9, ADULT SNOMED Code(s): 167243852
[2022-07-21] MEDS: LACTATED RINGERS 1,000 ML IV SCH (12:22)
[2022-07-21] MEDS ORDERED: SCOPOLAMINE 1 MG/72 HR PATCH TRANSDERM ONE (12:23)
[2022-07-21] MEDS ORDERED: PROPOFOL 10 MG/ML 20 ML VIAL IV ONE (12:25)
[2022-07-21] MEDS ORDERED: SUCCINYLCHOLINE CHLORIDE 200 MG/10 ML VIAL IV ONE (12:25)
[2022-07-21] MEDS ORDERED: NEOSTIGMINE 1 MG/ML 10 ML VIAL ONE (12:25)
[2022-07-21] MEDS ORDERED: fentaNYL (PF) 50 MCG/ML 2 ML AMP ONE (12:25)
[2022-07-21] MEDS ORDERED: ePHEDrine 50 MG/ML 1 ML VIAL ONE (12:25)
[2022-07-21] MEDS ORDERED: GLYCOPYRROLATE 0.2 MG/ML 2 ML VIAL ONE (12:25)
[2022-07-21] MEDS ORDERED: MIDAZOLAM 2 MG/2 ML VIAL ONE (12:25)
[2022-07-21] MEDS ORDERED: ROCURONIUM 10 MG/ML (5 ML VIAL) IV ONE (12:25)
[2022-07-21] MEDS ORDERED: HYDROmorphone (PF) 1 MG/ML ONE (12:25)
[2022-07-21] MEDS ORDERED: LIDOCAINE 2% INJ 20 MG/ML (2 ML VIAL) ONE (12:25)
[2022-07-21] MEDS ORDERED: KETOROLAC 15 MG/ML 1 ML VIAL ONE (12:25)
[2022-07-21] MEDS ORDERED: BUPIVACAIN-EPI 0.25%-1:200,000 30 ML VIAL SQ ONE (12:59)
[2022-07-21] MEDS ORDERED: LACTATED RINGERS 1,000 ML IV ONE ×2 (13:56→16:32)
[2022-07-21] MEDS ORDERED: HYDROmorphone 0.5 MG/0.5 ML SYRINGE IVP PRN (14:34)
[2022-07-21] MEDS ORDERED: HYOSCYAMINE ORAL DROPS 1.875 MG/15 ML BOTTLE PO PRN (14:34)
[2022-07-21] MEDS ORDERED: NALOXONE 0.4 MG/ML 1 ML VIAL IV PRN (14:34)
[2022-07-21] MEDS ORDERED: ONDANSETRON 4 MG/2 ML VIAL IVP PRN (14:34)
[2022-07-21] MEDS ORDERED: diphenhydrAMINE 50 MG/ML 1 ML VIAL IVP PRN (14:34)
--- NOTE | 2022-07-21 14:41 | P.OP ---
Date of Procedure: 07/21/22 Procedure(s) Performed: PREOPERATIVE DIAGNOSIS: Morbid obesity, hypertension, asthma, sleep apnea POSTOPERATIVE DIAGNOSIS: Same, abdominal adhesions PROCEDURE: Da Rick assisted laparoscopic sleeve gastrectomy , laparoscopic lysis of adhesions SURGEON: Sydnee EBL: Minimal ANESTHESIA: General COMPLICATIONS: None OPERATIVE PROCEDURE: Patient was placed in the operating table in the supine position. The patient was then placed under general anesthesia at that time. The abdomen was prepped and draped in the usual sterile fashion. A 5 mm optical trocar was placed in the left upper quadrant 20 cm inferior to the xiphoid process. Insufflation took place up to 15 mmHg. adhesions were seen at the midline at the site of previous ventral hernia repair. An additional 5 mm trocar was placed in the left upper quadrant and using a LigaSure and a Kitner I was able to mobilize adhesions so we were able to place the remainder of our trochars. A 5 mm subxiphoid incision was made and the medium Jp retractor was used to elevate the left lobe of liver anteriorly. This was held in place using the fixed arm retractor. An additional 12 mm trocar was placed in the right paramedian location and 2 additional 8 mm trochars were placed in the left upper quadrant one medial and one lateral to the initially placed optical trocar. All of these trochars were placed along the same plane. The initial 5 was then switched to an 8 mm trocar. The robot was then docked appropriately. The 8 mm camera was placed in the left paramedian trocar site down viewing. A fenestrated bipolar was placed in arm 1, arm 3 had the vessel sealer, arm 4 had the small grasper retractor. The hiatus was inspected and the re was no visible hiatal hernia. At that point I moved to the distal aspect of the greater curvature the stomach. The short gastric vasculature were divided using the vessel sealer. This dissection took place distally until we were 4 cm from the pylorus. The posterior adhesions were divided as well. The dissection then took place proximally along the stomach until the posterior short gastrics were divided and the fundus of the stomach was fully mobilized. Once the stomach was fully mobilized the blunt tipped 40-Mohawk bougie dilator was advanced into the stomach and advanced all the way to the prepyloric location. The patient's stomach by palpation seemed to be of average thickness. No buttressing was utilized. 2 green loads of the stapler were fired followed by 5 blue loads. The stomach was then placed in the right upper quadrant after it was fully excised. The oral gastric tube was reinserted. The stomach was insufflated with approximately 100 mL of methylene blue. No evidence of leak or obstruction was seen. Tisseel fibrin glue was then used along the length of the staple line. The robot was then undocked. The da Rick laparoscope was used and the stomach was removed from the 12 mm trocar site without difficulty. The fascia at the 12mm site was closed using [id number] 0 Vicryl sutures with the laparoscopic suture passer and Kobe Cuco technique. The insufflation was evacuated. The skin at all 6 incisions were closed using 4-0 Monocryl sutures. Skin glue was then applied. DISPOSITION: Stable to recovery room
[2022-07-21] MEDS ORDERED: ONDANSETRON 4 MG/2 ML VIAL IVP ONE (15:41)
[2022-07-21] MEDS: ALBUTEROL NEBULIZED 2.5 MG/3 ML INHALATION SCH ×2 (17:34→21:32)
[2022-07-21] MEDS: ACETAMINOPHEN IV (For NPO) 1,000 MG in EMPTY BAG 1 BAG IVPB SCH ×2 (18:35→23:43)
[2022-07-21] MEDS: 0.9% NACL WITH KCL 20 MEQ/L 1,000 ML IV SCH (18:58)
[2022-07-21] MEDS: HYDROmorphone 1 MG/ML 1 ML SYRINGE IVP PRN (20:33)
[2022-07-21] MEDS: SIMETHICONE 40 MG/0.6 ML DROPS 2,000 MG/30 ML BOTTLE PO PRN (22:40)
[2022-07-22] MEDS: 0.9% NACL WITH KCL 20 MEQ/L 1,000 ML IV SCH (00:57)
[2022-07-22] MEDS: HYDROmorphone 1 MG/ML 1 ML SYRINGE IVP PRN (01:00)
[2022-07-22] MEDS ORDERED: ENOXAPARIN 40 MG/0.4 ML SYRINGE SQ SCH (06:00)
[2022-07-22] MEDS: ACETAMINOPHEN IV (For NPO) 1,000 MG in EMPTY BAG 1 BAG IVPB SCH ×2 (06:38→12:44)
[2022-07-22] MEDS ORDERED: 0.9% NACL WITH KCL 20 MEQ/L 1,000 ML IV SCH (08:00)
[2022-07-22] MEDS: ALBUTEROL NEBULIZED 2.5 MG/3 ML INHALATION SCH ×3 (08:24→16:31)
[2022-07-22 08:25] VITALS: BP 127/57; PULSE 69; TEMP 98.2
[2022-07-22 08:31] LABS: Calcium 8.7 mg/dL (8.4-10.2); Magnesium 1.9 mg/dL (1.6-2.3); Phosphorus 3.1 mg/dL (2.5-4.5); Potassium 4.2 mmol/L (3.5-5.1)
[2022-07-22 08:42] LABS: Basophils % (A) 0 %; Eosinophils # (A) 0.1 k/uL (0-0.7); Eosinophils % (A) 1 %; HCT 37.2 % (39.0-53.0); Lymphocytes # (A) 1.5 k/uL (1.0-4.8); Lymphocytes % (A) 12 %; MCH 30.3 pg (25.0-35.0); MCHC 33.5 g/dL (31.0-37.0); MCV 90.5 fL (80.0-100.0); Monocytes # (A) 0.9 k/uL (0-1.0); Monocytes % (A) 7 %; Neutrophils # (A) 9.6 k/uL (1.3-7.7); Neutrophils % (A) 79 %; Platelet Count 314 k/uL (150-450); RBC 4.12 m/uL (4.30-5.90); RDW 13.4 % (11.5-15.5); WBC 12.3 k/uL (3.8-10.6)
[2022-07-22 08:45] LABS: HGB 12.5 gm/dL (13.0-17.5)
[2022-07-22] MEDS ORDERED: PANTOPRAZOLE 40 MG/10 ML VIAL IV SCH (09:00)
[2022-07-22] MEDS: SIMETHICONE 40 MG/0.6 ML DROPS 2,000 MG/30 ML BOTTLE PO PRN (09:07)
[2022-07-22] MEDS: KETOROLAC 15 MG/ML 1 ML VIAL IVP SCH ×2 (09:07→15:09)
[2022-07-22 10:21] VITALS: RESP 17
[2022-07-22 12:07] VITALS: BMI 53.3
[2022-07-22] MEDS: LACTATED RINGERS 1,000 ML IV SCH (12:45)
--- NOTE | 2022-07-22 12:51 | FL ---
EXAMINATION TYPE: FL UGI DATE OF EXAM: 07/22/2022 LIMITED UGI: CLINICAL HISTORY: Morbid Obesity, gastric sleeve surgery yesterday. TECHNIQUE: Limited esophagram is performed utilizing 25 oz of Isovue-370. A total of 15 seconds of f luoroscopic time was utilized during procedure and 59 images obtained. COMPARISON: None. FINDINGS: The patient swallowed contrast without difficulty or delay. Esophageal peristalsis and mo tility are within normal limits. There is good flow of contrast along the diaphragmatic hiatus into proximal stomach and subsequent flow into gastric sleeve through the proximal anastomosis. There is g ood flow from distal sleeve and anastomosis into pylorus and duodenal sweep. Patient remains asymptom atic. There is no evidence of contrast extravasation to suggest leak. IMPRESSION: No evidence of leak or significant obstruction status post recent gastric sleeve surgery. Total DAP= 7511 mgy x cm2
--- NOTE | 2022-07-22 14:58 | P.PN ---
Subjective Progress Note Date: 07/22/22 Principal diagnosis: Morbid obesity Patient doing well today. No significant pain. Denies nausea or vomiting. Upper GI shows no evidence of leak or obstruction. Minimal leukocytosis seen on CBC today. Objective - Vital Signs Vital signs: Vital Signs Temp 98.2 F 07/22/22 07:21 Pulse 69 07/22/22 07:21 Resp 17 07/22/22 10:18 BP 127/57 07/22/22 07:21 Pulse Ox 93 L 07/22/22 13:23 FiO2 Intake & Output 07/21/22 07/22/22 07/22/22 18:59 06:59 18:59 Intake Total 2100 Output Total 10 Balance 2089 Weight 163.9 kg 163.9 kg Intake: IV 2100 Output: Estimated Blood Loss 10 Other: Voiding Method Toilet # Voids 2 - Exam Abdomen: Soft, nondistended, incisions clean and dry, minimal tenderness - Labs CBC & Chem 7: 07/22/22 07:38 07/22/22 07:38 Labs: Abnormal Lab Results - Last 24 Hours (Table) 07/22/22 Range/Units 07:38 WBC 12.3 H (3.8-10.6) k/uL RBC 4.12 L (4.30-5.90) m/uL Hgb 12.5 L D (13.0-17.5) gm/dL Hct 37.2 L (39.0-53.0) % Neutrophils # 9.6 H (1.3-7.7) k/uL Assessment and Plan (1) Morbid obesity with BMI of 50.0-59.9, adult Narrative/Plan: Patient doing well after sleeve gastrectomy yesterday. Continue bariatric clear liquids. Possible discharge later today or tomorrow based on oral intake. Current Visit: No Status: Acute Code(s): E66.01 - MORBID (SEVERE) OBESITY DUE TO EXCESS CALORIES; Z68.43 - BODY MASS INDEX [BMI] 50.0-59.9, ADULT SNOMED Code(s): 981462477
[2022-07-23] MEDS ORDERED: bisacodyL 5 MG TABLET.DR PO PRN (08:00)
== END 2022-07-22 18:36 | disposition home or self-care (01) | DRG 621 ==
LOC: 2ORMAIN 11:47 → 4SSUR 16:22
PROVIDERS: ADMIT Surgery; ATTEND Surgery
PROC: 0DB64Z3 Excision of Stomach, Percutaneous Endoscopic Approach, Vertical (ICD-10-PCS; principal; 2022-07-21 12:40)
PROC: 8E0W4CZ Robotic Assisted Procedure of Trunk Region, Percutaneous Endoscopic Approach (ICD-10-PCS; principal; 2022-07-21 12:40)
DX: E66.01 Morbid (severe) obesity due to excess calories (principal); F41.9 Anxiety disorder, unspecified; Z68.43 Body mass index [BMI] 50.0-59.9, adult; G47.30 Sleep apnea, unspecified; I10 Essential (primary) hypertension; J45.909 Unspecified asthma, uncomplicated; K29.70 Gastritis, unspecified, without bleeding; Z79.899 Other long term (current) drug therapy; Z71.3 Dietary counseling and surveillance; Z87.19 Personal history of other diseases of the digestive system
CPT/HCPCS: 74240; 80051; 82310; 82565; 83735; 84100; 84520; 85025; 86850; 86900; 86901; 88307; 94760

== ENCOUNTER → 2022-07-25 | Outpatient (CLI) | payer OTHER ==
[2022-07-25 11:54] VITALS: BP 118/79; PULSE 73; RESP 12; TEMP 98.1; BMI 51.2
== END ==
LOC: BARWHC3 10:01
PROVIDERS: ATTEND Surgery
DX: E66.01 Morbid (severe) obesity due to excess calories (principal); Z68.43 Body mass index [BMI] 50.0-59.9, adult
CPT/HCPCS: 99211

== ENCOUNTER → 2022-07-29 | Outpatient (CLI) | payer OTHER ==
[2022-07-29 15:03] VITALS: BP 103/69; PULSE 63; RESP 16; TEMP 97.6; BMI 50.8
--- NOTE | 2022-07-29 16:34 | P.BASOAP ---
Subjective Progress Note Date: 07/29/22 Principal diagnosis: Morbid obesity Patient doing well today. Underwent laparoscopic sleeve gastrectomy 1 week ago. He has lost additional weight since his last visit. Heart rate today 63. No pain. Says he has been lightheaded when standing on a few occasions. Systolic blood pressure 103. Remains on the same dose of antihypertensive C was on before hand. Tolerating 65-75 ounces of liquids daily. Over 60 g of protein. Objective - Vital Signs Vital signs: Vital Signs Temp 97.6 F 07/29/22 15:00 Pulse 63 07/29/22 15:00 Resp 16 07/29/22 15:00 BP 103/69 07/29/22 15:00 Pulse Ox FiO2 Intake & Output 07/28/22 07/29/22 07/29/22 18:59 06:59 18:59 Weight 160.572 kg - Exam Abdomen: Soft, nondistended, incisions clean and dry Assessment/Plan (1) Morbid obesity with BMI of 50.0-59.9, adult Narrative/Plan: Patient doing well postoperatively. He will decrease his antihypertensive dose in half. He will discuss possibly stopping this with his primary care physician. Continue dietary and exercise regimen. Monitor liquid and protein intake. Recheck 2 weeks. We'll check one month labs at that time. Plan: Date: 07/29/22 Initial Weight: 175.087 kg Initial BMI: 55.3 Current Weight: 160.572 kg Current BMI: 50.8 Type of Surgery: Vertical Sleeve Gastrectomy Total Volume in Band: Previous Volume: Volume Removed: Volume Added: Band Size:
== END ==
LOC: BARWHC3 14:29
PROVIDERS: ATTEND Surgery
DX: E66.01 Morbid (severe) obesity due to excess calories (principal); Z68.43 Body mass index [BMI] 50.0-59.9, adult; Z98.84 Bariatric surgery status
CPT/HCPCS: 97803; 99211

== ENCOUNTER → 2022-08-21 | Outpatient (CLI) | payer OTHER ==
[2022-08-21 14:48] LABS: HCT 44.9 % (39.6-50.0); HGB 14.6 g/dL (13.0-17.0); MCH 31.2 pg (27.0-32.0); MCHC 32.5 g/dL (32.0-37.0); MCV 95.9 fL (80.0-97.0); Mean Platelet Volume 11.8 fL (9.5-12.2); NRBC Per 100 WBC 0 /100 WBCS (0.0-0.0); Platelet Count 289 X 10*3/uL (140-440); RBC 4.68 X 10*6/uL (4.40-5.60); RDW 14.6 % (11.5-14.5); WBC 7.31 X 10*3/uL (4.50-10.00)
[2022-08-21 15:18] LABS: African American GFR (CKD) 75.3 (60.0-200.0); Albumin 4.1 g/dL (3.8-4.9); Albumin/Globulin Ratio 1.63 (1.60-3.17); Anion Gap 12.4 mmol/L (10.00-18.00); BUN/Creat Ratio 16.3 Ratio (12.00-20.00); Blood Urea Nitrogen 20.7 mg/dL (9.0-27.0); Calcium 9.9 mg/dL (8.7-10.3); Globulin 2.5 g/dL (1.6-3.3); Total Bilirubin 0.7 mg/dL (0.30-1.20); Total Protein 6.6 g/dL (6.2-8.2)
== END | disposition home or self-care (01) ==
LOC: LABWHC1 08:45
PROVIDERS: ATTEND Surgery
DX: E66.01 Morbid (severe) obesity due to excess calories (principal); E55.9 Vitamin D deficiency, unspecified; K90.89 Other intestinal malabsorption
CPT/HCPCS: 36415; 80053; 82306; 82607; 82746; 83540; 84425; 85027

== ENCOUNTER → 2022-09-30 | Outpatient (CLI) | payer OTHER ==
[2022-09-30 13:46] VITALS: BP 128/85; PULSE 80; TEMP 98.2; BMI 45.4
--- NOTE | 2022-09-30 13:57 | P.BASOAP ---
Subjective Progress Note Date: 09/30/22 Principal diagnosis: Morbid obesity Patient returns for recheck. Last seen 4-6 weeks ago. Underwent sleeve gastrectomy on 07/21. Had labs checked on 08/22. Only slightly low vitamin D was noted. Doing well. No nausea or vomiting. He stopped his omeprazole with no complaints of reflux. No dysphagia. Working up proximally 60 hours a week. Does not have much time for exercise. Objective - Vital Signs Vital signs: Vital Signs Temp 98.2 F 09/30/22 13:44 Pulse 80 09/30/22 13:44 Resp BP 128/85 09/30/22 13:44 Pulse Ox FiO2 Intake & Output 09/29/22 09/30/22 09/30/22 18:59 06:59 18:59 Weight 143.789 kg - Exam Abdomen: Soft, nontender, nondistended Assessment/Plan (1) Morbid obesity with BMI of 50.0-59.9, adult Narrative/Plan: 51-year-old male doing well after sleeve gastrectomy. Continue dietary and exercise regimen. Follow-up one month. We'll check 3 month labs at that time. Plan: Date: 09/30/22 Initial Weight: 175.087 kg Initial BMI: 55.3 Current Weight: 143.789 kg Current BMI: 45.4 Type of Surgery: Total Volume in Band: Previous Volume: Volume Removed: Volume Added: Band Size:
== END ==
LOC: BARWHC3 13:13
PROVIDERS: ATTEND Surgery
DX: E66.01 Morbid (severe) obesity due to excess calories (principal); Z68.42 Body mass index [BMI] 45.0-49.9, adult; Z71.3 Dietary counseling and surveillance; Z98.84 Bariatric surgery status
CPT/HCPCS: 99211

== ENCOUNTER → 2022-11-25 | Outpatient (CLI) | payer OTHER ==
--- NOTE | 2022-11-25 15:17 | P.BASOAP ---
Subjective Progress Note Date: 11/25/22 Principal diagnosis: Morbid obesity Patient returns for recheck. Last seen 2 months ago. Overall doing well. Having some left knee pain. Stopped his antiacids. No heartburn. 26 pound weight loss since last visit. No dysphagia or heartburn. Objective - Exam Abdomen: Soft, nontender, nondistended Assessment/Plan (1) Morbid obesity with BMI of 50.0-59.9, adult Narrative/Plan: Patient returns for recheck. Doing well at this time. Check three-month labs. Patient may see orthopedics regarding his left knee pain. Recheck 2 months. Plan: Date: Initial Weight: 175.087 kg Initial BMI: Current Weight: Current BMI: Type of Surgery: Total Volume in Band: Previous Volume: Volume Removed: Volume Added: Band Size:
[2022-11-25 15:34] VITALS: BP 126/82; PULSE 71; TEMP 97.7; BMI 41.7
== END ==
LOC: BARWHC3 14:36
PROVIDERS: ATTEND Surgery
DX: E66.01 Morbid (severe) obesity due to excess calories (principal); Z68.41 Body mass index [BMI] 40.0-44.9, adult; Z71.3 Dietary counseling and surveillance
CPT/HCPCS: 97803; 99211

== ENCOUNTER → 2023-01-27 | Outpatient (CLI) | payer OTHER ==
--- NOTE | 2023-01-27 15:38 | P.BASOAP ---
Subjective Progress Note Date: 01/27/23 Principal diagnosis: Morbid obesity Patient returns for recheck. Doing well since last visit in November. He did not have his labs checked last visit. No nausea or vomiting, no GERD, no pain. Has left knee pain is improved. Objective - Vital Signs Vital signs: Vital Signs Temp 97.9 F 01/27/23 15:21 Pulse 79 01/27/23 15:21 Resp 16 01/27/23 15:21 BP 117/72 01/27/23 15:21 Pulse Ox FiO2 Intake & Output 01/26/23 01/27/23 01/27/23 18:59 06:59 18:59 Weight 125.645 kg - Exam Abdomen: Soft, nontender, nondistended Assessment/Plan (1) Morbid obesity with BMI of 50.0-59.9, adult Narrative/Plan: Patient doing well at this time. Continue dietary and exercise regimen. Check 6 month labs. Follow-up 2 months. Plan: Date: 01/27/23 Initial Weight: 175.087 kg Initial BMI: 55.3 Current Weight: 125.645 kg Current BMI: 39.7 Type of Surgery: Vertical Sleeve Gastrectomy Total Volume in Band: Previous Volume: Volume Removed: Volume Added: Band Size:
[2023-01-27 15:40] VITALS: BP 117/72; PULSE 79; RESP 16; TEMP 97.9; BMI 39.7
== END ==
LOC: BARWHC3 14:58
PROVIDERS: ATTEND Surgery
DX: E66.01 Morbid (severe) obesity due to excess calories (principal); Z71.3 Dietary counseling and surveillance; Z68.39 Body mass index [BMI] 39.0-39.9, adult
CPT/HCPCS: 99211

== ENCOUNTER → 2023-03-16 | Outpatient (CLI) | payer OTHER ==
[2023-03-16 15:59] LABS: HCT 47.4 % (39.6-50.0); HGB 15.8 g/dL (13.0-17.0); MCH 31.3 pg (27.0-32.0); MCHC 33.3 g/dL (32.0-37.0); Mean Platelet Volume 11.7 FL (9.5-12.2); NRBC Per 100 WBC 0 X 10*3/uL (0.00-0.01); Platelet Count 355 X 10*3/uL (140-440); RBC 5.04 X 10*6/uL (4.40-5.60); RDW 13.2 % (11.5-14.5); WBC 7.29 X 10*3/uL (4.50-10.00)
[2023-03-16 16:33] LABS: ALT 25 U/L (10-49); AST 22 U/L (14-35); Albumin 4.4 g/dL (3.8-4.9); Albumin/Globulin Ratio 1.69 Ratio (1.60-3.17); Alkaline Phosphatase 96 U/L (41-126); BUN/Creat Ratio 16.17 Ratio (12.00-20.00); Blood Urea Nitrogen 19.4 mg/dL (9.0-27.0); Calcium 10.2 mg/dL (8.7-10.3); Carbon Dioxide 25.5 mmol/L (21.6-31.8); Chloride 102 mmol/L (96-109); Globulin 2.6 g/dL (1.6-3.3); Glucose 91 mg/dL (70-110); Iron 152 UG/DL (65-175); Potassium 4.4 mmol/L (3.5-5.5); Sodium 142 mmol/L (135-145); Total Bilirubin 0.5 mg/dL (0.3-1.2)
== END | disposition home or self-care (01) ==
LOC: LABWHC1 07:35
PROVIDERS: ATTEND Surgery
DX: E55.9 Vitamin D deficiency, unspecified (principal); K90.89 Other intestinal malabsorption
CPT/HCPCS: 36415; 80053; 82306; 82607; 82746; 83540; 84425; 85027

== ENCOUNTER → 2023-03-17 | Outpatient (CLI) | payer OTHER ==
--- NOTE | 2023-03-17 15:40 | P.BASOAP ---
Subjective Progress Note Date: 03/17/23 Principal diagnosis: Morbid obesity Patient returns for recheck. Last seen in January. Had 6 month labs ordered but he just had them drawn yesterday. Adamantly was 29. Excellent weight loss. No GERD. No antiacids. Patient is complaining of a small lump right lower back. Had recent ultrasound showing 2.4 x 1.9 cm mass. Sore at times. Patient also states he may be due for a colonoscopy. His had colon cancer in the past Objective - Vital Signs Vital signs: Vital Signs Temp 98.4 F 03/17/23 15:12 Pulse 69 03/17/23 15:12 Resp 16 03/17/23 15:12 BP 138/70 03/17/23 15:12 Pulse Ox FiO2 Intake & Output 03/16/23 03/17/23 03/17/23 18:59 06:59 18:59 Weight 68.039 kg - Exam Abdomen: Soft, nontender, nondistended Right lower back mass 2.5 x 1.5 cm Assessment/Plan (1) Morbid obesity with BMI of 50.0-59.9, adult Narrative/Plan: Patient doing well at this time. Continue dietary and exercise regimen. Follow-up 2 months. Will tentatively plan colonoscopy with excision right lower back mass in the next few months. Plan: Date: 03/17/23 Initial Weight: 175.087 kg Initial BMI: 66.2 Current Weight: 68.039 kg Current BMI: 25.7 Type of Surgery: Vertical Sleeve Gastrectomy Total Volume in Band: Previous Volume: Volume Removed: Volume Added: Band Size:
[2023-03-17 15:41] VITALS: BP 138/70; PULSE 69; RESP 16; TEMP 98.4; BMI 25.7
== END ==
LOC: BARWHC3 15:07
PROVIDERS: ATTEND Surgery
DX: E66.01 Morbid (severe) obesity due to excess calories (principal); R22.2 Localized swelling, mass and lump, trunk; Z71.3 Dietary counseling and surveillance; Z68.25 Body mass index [BMI] 25.0-25.9, adult
CPT/HCPCS: 99211

== ENCOUNTER → 2024-01-12 | Outpatient (CLI) | payer OTHER ==
[2024-01-12 14:27] VITALS: BP 151/93; PULSE 59; RESP 16; TEMP 97.8; BMI 36.1
--- NOTE | 2024-01-12 15:45 | P.BASOAP ---
Subjective Progress Note Date: 01/12/24 Principal diagnosis: Morbid obesity Patient returns for recheck. Last seen in May. Sleeve performed last July 2022. He has lost 12 pounds. He was as low as 245. Maintained adequate restriction. No GERD, no nausea or vomiting. No antiacids. Objective - Vital Signs Vital signs: Vital Signs Temp 97.8 F 01/12/24 14:25 Pulse 59 L 01/12/24 14:25 Resp 16 01/12/24 14:25 BP 151/93 01/12/24 14:25 Pulse Ox FiO2 Intake & Output 01/11/24 01/12/24 01/12/24 18:59 06:59 18:59 Weight 114.305 kg - Exam Abdomen: Soft, nontender, nondistended Assessment/Plan (1) Morbid obesity with BMI of 50.0-59.9, adult Narrative/Plan: Patient doing well at this time. Continue dietary and exercise regimen. Check annual lab work. Patient never did have the suspected lipoma and colonoscopy performed. He states he will call to schedule. Follow-up 6 months. Plan: Date: 01/12/24 Initial Weight: 175.087 kg Initial BMI: 55.3 Current Weight: 114.305 kg Current BMI: 36.1 Type of Surgery: Vertical Sleeve Gastrectomy Total Volume in Band: Previous Volume: Volume Removed: Volume Added: Band Size:
== END | disposition home or self-care (01) ==
LOC: BARWHC3 14:12
PROVIDERS: ATTEND Surgery
DX: E66.01 Morbid (severe) obesity due to excess calories (principal); Z68.43 Body mass index [BMI] 50.0-59.9, adult; Z71.3 Dietary counseling and surveillance
CPT/HCPCS: 99211

== ENCOUNTER → 2024-04-11 | Outpatient (CLI) | payer OTHER ==
--- NOTE | 2024-04-12 16:44 | MR ---
MRI right ankle without contrast HISTORY: Ankle pain. Ankylosis of right ankle. COMPARISON: None TECHNIQUE: Multiecho multiplanar images of the right ankle were obtained. FINDINGS: There are marked osteoarthritic changes of the ankle and midfoot where there are multiple subchondral cysts, thinning of the articular cartilages and effusions in the tibiotalar joint and talocalcaneal joint. There is marked bone marrow edema within the talus and calcaneus. The Achilles tendon is intact. The extensor tendons and peroneal tendons and tendon sheaths are intac t. There is more fluid in the flexor hallucis and flexor digitorum tendon sheaths consistent with marked tenosynovitis. There is mild focal fluid within the tibialis posterior tendon indicating mild tenosy novitis.There is no flexor tendon tear. There is no ligamentous injury. IMPRESSION: IMPRESSION: 1. Marked osteoarthritic changes of the ankle joint and midfoot as described above. There is marked e daniela in the talus and calcaneus and a large talocalcaneal joint effusion. 2. Tenosynovitis involving the flexor tendons of the ankle. 3. No ligamentous injury. 4. No Achilles tendon abnormality [facility], Workstation: [facility], 04/12/2024 4:42 PM
== END | disposition home or self-care (01) ==
LOC: RADMRIMAIN 18:34
PROVIDERS: ATTEND Orthopaedic Surgery Sports Medicine
DX: M19.071 Primary osteoarthritis, right ankle and foot (principal); M65.971 Unspecified synovitis and tenosynovitis, right ankle and foot; M24.671 Ankylosis, right ankle; G89.29 Other chronic pain